=== PATIENT | male | born 1995 | race Caucasian/White ===

== ENCOUNTER 2020-07-10 16:34 | Emergency (ER) | payer BC ==
[2020-07-10] MEDS ORDERED: HYDROCODONE/APAP 7.5/325 MG TAB ONE (16:58)
--- NOTE | 2020-07-10 17:43 | RAD REPORT ---
EXAM DESCRIPTION: RAD - Forearm Right - 07/10/2020 5:17 pm CLINICAL HISTORY: PAIN COMPARISON: No comparisons FINDINGS: No fracture is identified. There is no dislocation or periosteal reaction noted. No foreign body or other soft tissue abnormality. IMPRESSION: Negative right forearm examination.
--- NOTE | 2020-07-10 18:31 | EDPHYS ---
Physician Documentation [facility] Name: Ivan Noe Age: 25 yrs Sex: Male : 1995 Arrival Date: 07/10/2020 Time: 16:34 Bed 13 Private MD: ED Physician Reggie Jarrett HPI: 07/10 17:00 This 25 yrs old Male presents to ER via Ambulatory with complaints of Crush kdr Injury To Arm. 17:00 The patient or guardian complains of an abrasion, contusion, a crush injury, injury, kdr pain. The complaints affect the dorsal aspect of right forearm and palmar aspect of right forearm. Context: The problem was sustained on a street or driveway, resulted from a crush injury, Car rolled over his arm. Onset: The symptoms/episode began/occurred acutely, just prior to arrival. Treatment prior to arrival includes: no previous treatment. Modifying factors: The symptoms are alleviated by nothing. the symptoms are aggravated by movement, bending arm. Associated signs and symptoms: The patient has no apparent associated signs or symptoms. Severity of symptoms: At their worst the symptoms were mild, in the emergency department the symptoms are unchanged. The patient has not experienced similar symptoms in the past. The patient has not recently seen a physician. Historical: - Allergies: 16:49 No Known Allergies; ca1 - Home Meds: 16:49 None [Active]; ca1 - PMHx: 16:49 None; ca1 - PSHx: 16:49 None; ca1 - Immunization history:: Adult Immunizations up to date, Last tetanus immunization: up to date. - Social history:: Smoking status: Patient denies any tobacco usage or history of. - Immunization history: Last tetanus immunization: - up to date. ROS: 17:00 Constitutional: Negative for fever, chills, and weight loss, Eyes: Negative for injury, kdr pain, redness, and discharge, Neck: Negative for injury, pain, and swelling, Cardiovascular: Negative for chest pain, palpitations, and edema, Respiratory: Negative for shortness of breath, cough, wheezing, and pleuritic chest pain, Abdomen/GI: Negative for abdominal pain, nausea, vomiting, diarrhea, and constipation. 17:00 MS/extremity: Positive for injury or acute deformity, decreased range of motion, pain, tenderness, of the dorsal aspect of right forearm and palmar aspect of right forearm. Exam: 17:00 Constitutional: This is a well developed, well nourished patient who is awake, alert, kdr and in no acute distress. Head/Face: Normocephalic, atraumatic. Chest/axilla: Normal chest wall appearance and motion. Nontender with no deformity. No lesions are appreciated. 17:00 Musculoskeletal/extremity: ROM: intact in all extremities, Pulses: are normal with no appreciated deficits, Sensation intact. Compartment Syndrome exam of affected extremity: no numbness, no tingling, no sensation deficit, no palor, no weak pulses, Joints: All joints appear normal with full range of motion. Vital Signs: 16:38 BP 153 / 83; Pulse 91; Resp 17; Temp 98.8(TE); Pulse Ox 99% on R/A; Weight 63.5 kg (R); ca1 Height 6 ft. 2 in. (187.96 cm) (R); Pain 8/10; 16:40 BP 153 / 83; Pulse 81; Resp 15; Pulse Ox 100% on R/A; tw2 17:02 BP 137 / 85; Pulse 77; Resp 15; Pulse Ox 100% ; tw2 17:25 Pain 4/10; tw2 17:26 BP 147 / 86; Pulse 78; Resp 17; Pulse Ox 99% on R/A; Pain 4/10; tw2 18:11 BP 116 / 64; Pulse 76; Resp 17; Pulse Ox 97% on R/A; tw2 16:38 Body Mass Index 17.97 (63.50 kg, 187.96 cm) ca1 Dmitry Coma Score: 17:02 Eye Response: spontaneous(4). Verbal Response: oriented(5). Motor Response: obeys jl7 commands(6). Total: 15. 17:26 Eye Response: spontaneous(4). Verbal Response: oriented(5). Motor Response: obeys tw2 commands(6). Total: 15. Trauma Score (Adult): 16:40 Eye Response: spontaneous(1); Verbal Response: oriented(1); Motor Response: obeys tw2 commands(2); Systolic BP: > 89 mm Hg(4); Respiratory Rate: 10 to 29 per min(4); Dmitry Score: 15; Trauma Score: 12 17:26 Eye Response: spontaneous(1); Verbal Response: oriented(1); Motor Response: obeys tw2 commands(2); Systolic BP: > 89 mm Hg(4); Respiratory Rate: 10 to 29 per min(4); Dmitry Score: 15; Trauma Score: 12 MDM: 17:00 Data reviewed: vital signs, radiologic studies. Counseling: I had a detailed discussion kdr with the patient and/or guardian regarding: the historical points, exam findings, and any diagnostic results supporting the discharge/admit diagnosis, radiology results, the need for outpatient follow up. 18:30 Patient medically screened. kdr 07/10 16:59 Order name: Forearm Right XRAY; Complete Time: 18:34 kdr 07/10 17:05 Order name: Ice pack; Complete Time: 17:05 tw2 Administered Medications: 16:46 Drug: [place] (7.5 mg-325 mg) 1 tabs {Note: rass 0.} Route: PO; ca1 17:25 Follow up: Pain 4/10 Adult; Response: No adverse reaction; Pain is decreased; RASS: tw2 Alert and Calm (0) Disposition: 07/10/20 18:30 Discharged to Home. Impression: Crushing injury of forearm. - Condition is Stable. - Discharge Instructions: Contusion, [id number], Acute Compartment Syndrome, Crush Injury of the Hand, [id number]. - Prescriptions for Tylenol- Codeine #3 300-30 mg Oral Tablet - take 2 tablet by ORAL route every 6 hours As needed; 6 tablet. - Medication Reconciliation Form, Thank You Letter, Prescription Opioid Use, Work release form form. - Follow up: Private Physician; When: 2 - 3 days; Reason: If symptoms return, Further diagnostic work-up, Recheck today's complaints, Continuance of care, Re-evaluation by your physician. - Problem is new. - Symptoms have improved. Signatures: Dispatcher [employer] EDMS Reggie Jarrett MD MD kdr Viviane Vincent RN RN tw2 Grisel Reeves RN RN ca1 Corrections: (The following items were deleted from the chart) 18:44 18:30 07/10/2020 18:30 Discharged to Home. Impression: Crushing injury of forearm. tw2 Condition is Stable. Forms are Work release form, Medication Reconciliation Form, Thank You Letter, Antibiotic Education, Prescription Opioid Use. Follow up: Private Physician; When: 2 - 3 days; Reason: If symptoms return, Further diagnostic work-up, Recheck today's complaints, Continuance of care, Re-evaluation by your physician. Problem is new. Symptoms have improved. kdr
--- NOTE | 2020-07-10 18:31 | ER ---
Nurse's Notes [facility] Name: Ivan Noe Age: 25 yrs Sex: Male : 1995 Arrival Date: 07/10/2020 Time: 16:34 Bed 13 Private MD: Diagnosis: Crushing injury of forearm Presentation: 07/10 16:38 Chief complaint: Patient states: was working on a truck, a dually, it started to roll ca1 and I tried to stop it. The back tire ran over my arm. Abrasions on R forearm and R elbow. Coronavirus screen: Client denies travel out of the [place] in the last 14 days. At this time, the client does not indicate any symptoms associated with coronavirus-19. Ebola Screen: Patient negative for fever greater than or equal to 101.5 degrees Fahrenheit, and additional compatible Ebola Virus Disease symptoms Patient denies exposure to infectious person. Patient denies travel to an Ebola-affected area in the 21 days before illness onset. No symptoms or risks identified at this time. Initial Sepsis Screen: Does the patient meet any 2 criteria? No. Patient's initial sepsis screen is negative. Does the patient have a suspected source of infection? No. Patient's initial sepsis screen is negative. Risk Assessment: Do you want to hurt yourself or someone else? Patient reports no desire to harm self or others. Onset of symptoms was July 10, 2020. 16:38 Method Of Arrival: Ambulatory ca1 16:38 Acuity: GHANSHYAM 2 ca1 16:40 Care prior to arrival: None. Mechanism of Injury: Crush injury from [employer] truck. tw2 Trauma event details: Injury occurred in the [facility]. Trauma Activation: Alert Physician: ED Physician; Name: ; Notified At: ; Arrived At: Physician: General Surgeon; Name: ; Notified At: ; Arrived At: Physician: Radiology; Name: ; Notified At: ; Arrived At: Physician: Respiratory; Name: ; Notified At: ; Arrived At: Physician: Lab; Name: ; Notified At: ; Arrived At: Historical: - Allergies: 16:49 No Known Allergies; ca1 - Home Meds: 16:49 None [Active]; ca1 - PMHx: 16:49 None; ca1 - PSHx: 16:49 None; ca1 - Immunization history:: Adult Immunizations up to date, Last tetanus immunization: up to date. - Social history:: Smoking status: Patient denies any tobacco usage or history of. - Immunization history: Last tetanus immunization: - up to date. Screenin:02 Abuse screen: Denies threats or abuse. Denies injuries from another. Nutritional jl7 screening: No deficits noted. Tuberculosis screening: No symptoms or risk factors identified. 17:11 Fall Risk None identified. tw2 Primary Survey: 16:38 NO uncontrolled hemorrhage observed. A: The patient is alert. Airway: patent. tw2 Breathing/Chest: Respiratory pattern: regular, Respiratory effort: spontaneous, unlabored, Breath sounds: clear, Chest inspection: symmetrical rise and fall of the chest. Circulation: Heart tones present. Skin color: pink, Skin temperature: warm, dry. Disability Alert. Exposure/Environment: All clothing and personal items were removed. Forensic evidence collection is not deemed to be indicated at this time. Items placed in patient belonging bag. There is no evidence of uncontrolled external bleeding. Obvious injury(ies) are noted at this time: abrasions noted to right forearm at this time. 17:26 Reassessment Airway Airway Patent Breathing/Chest Respiratory pattern Regular tw2 Respiratory effort Spontaneous Unlabored Breath sounds Clear Chest inspection Symmetrical Circulation Heart tones Present Color Pale Temperature Dry Disability Alert. Secondary Survey: 17:06 HEENT:. HEENT: No deficits noted. Gastrointestinal: No deficits noted. Abdomen is soft, tw2 Bowel sounds present in all quadrants. : No signs and/or symptoms were reported regarding the genitourinary system. Musculoskeletal: Circulation, motion, and sensation intact. Range of motion: intact in all extremities. Assessment: 16:40 General: Appears in no apparent distress. slender, Behavior is calm, cooperative, tw2 appropriate for age. Pain: Complains of pain in right arm and palmar aspect of right forearm and dorsal aspect of right forearm. Neuro: Level of Consciousness is awake, alert, obeys commands, Oriented to person, place, time, situation. Cardiovascular: Heart tones S1 S2 Patient's skin is warm and dry. Respiratory: Airway is patent Respiratory effort is even, unlabored, Respiratory pattern is regular, symmetrical, Breath sounds are clear bilaterally. GI: No signs and/or symptoms were reported involving the gastrointestinal system. Abdomen is flat, Bowel sounds present X 4 quads. : No signs and/or symptoms were reported regarding the genitourinary system. EENT: No signs and/or symptoms were reported regarding the EENT system. Derm: abrasions noted to right forearm. Musculoskeletal: Circulation, motion, and sensation intact. Range of motion: intact in all extremities, redness and abrasions noted to right forearm. 16:42 Reassessment: provider at bedside at this time. tw2 17:29 Reassessment: Patient appears in no apparent distress at this time. No changes from tw2 previously documented assessment. Patient and/or family updated on plan of care and expected duration. Pain level reassessed. Patient is alert, oriented x 3, equal unlabored respirations, skin warm/dry/pink. 18:11 Reassessment: Patient appears in no apparent distress at this time. No changes from tw2 previously documented assessment. Patient and/or family updated on plan of care and expected duration. Pain level reassessed. Patient is alert, oriented x 3, equal unlabored respirations, skin warm/dry/pink. Vital Signs: 16:38 BP 153 / 83; Pulse 91; Resp 17; Temp 98.8(TE); Pulse Ox 99% on R/A; Weight 63.5 kg (R); ca1 Height 6 ft. 2 in. (187.96 cm) (R); Pain 8/10; 16:40 BP 153 / 83; Pulse 81; Resp 15; Pulse Ox 100% on R/A; tw2 17:02 BP 137 / 85; Pulse 77; Resp 15; Pulse Ox 100% ; tw2 17:25 Pain 4/10; tw2 17:26 BP 147 / 86; Pulse 78; Resp 17; Pulse Ox 99% on R/A; Pain 4/10; tw2 18:11 BP 116 / 64; Pulse 76; Resp 17; Pulse Ox 97% on R/A; tw2 16:38 Body Mass Index 17.97 (63.50 kg, 187.96 cm) ca1 [place] Coma Score: 17:02 Eye Response: spontaneous(4). Verbal Response: oriented(5). Motor Response: obeys jl7 commands(6). Total: 15. 17:26 Eye Response: spontaneous(4). Verbal Response: oriented(5). Motor Response: obeys tw2 commands(6). Total: 15. Trauma Score (Adult): 16:40 Eye Response: spontaneous(1); Verbal Response: oriented(1); Motor Response: obeys tw2 commands(2); Systolic BP: > 89 mm Hg(4); Respiratory Rate: 10 to 29 per min(4); [place] Score: 15; Trauma Score: 12 17:26 Eye Response: spontaneous(1); Verbal Response: oriented(1); Motor Response: obeys tw2 commands(2); Systolic BP: > 89 mm Hg(4); Respiratory Rate: 10 to 29 per min(4); Dmitry Score: 15; Trauma Score: 12 ED Course: 16:34 Patient arrived in ED. as 16:39 Reggie Jarrett MD is Attending Physician. kdr 16:40 Patient maintains SpO2 saturation greater than 95% on room air. tw2 16:42 Viviane Vincent RN is Primary Nurse. tw2 16:48 Triage completed. ca1 16:49 Arm band placed on right wrist. ca1 17:02 Patient has correct armband on for positive identification. Placed in gown. Bed in low jl7 position. Call light in reach. Side rails up X 1. Pulse ox on. NIBP on. 17:10 Thermoregulation: warm blanket given to patient. tw2 17:17 Forearm Right XRAY In Process Unspecified. EDMS 18:43 No provider procedures requiring assistance completed. Patient did not have IV access tw2 during this emergency room visit. Administered Medications: 16:46 Drug: [place] (7.5 mg-325 mg) 1 tabs {Note: rass 0.} Route: PO; ca1 17:25 Follow up: Pain 4/10 Adult; Response: No adverse reaction; Pain is decreased; RASS: tw2 Alert and Calm (0) Intake: 18:07 PO: 0ml; Total: 0ml. tw2 Outcome: 18:30 Discharge ordered by . kdr 18:43 Discharged to home ambulatory. tw2 18:43 Condition: stable 18:43 Discharge instructions given to patient, Instructed on discharge instructions, follow up and referral plans. no drinking with medication, no driving heavy equipment, medication usage, Demonstrated understanding of instructions, follow-up care, medications, Prescriptions given X 1. 18:44 Patient's length of stay was not longer than 2 hours. tw2 18:44 Patient left the ED. tw2 Signatures: Dispatcher [employer] EDMS Reggie Jarrett MD MD kdr Martinez, Amelia as Wise, Tara, RN RN tw2 Jeet Lawson RN RN jl7 Grisel Reeves RN RN ca1 Corrections: (The following items were deleted from the chart) 17:09 17:02 BP 137 / 54; Pulse 77bpm; Resp 15bpm; Pulse Ox 100%; jl7 tw2 18:11 17:26 BP 147 / 86; Pulse 78bpm; Resp 17bpm; Pulse Ox 99% RA; tw2 tw2
[2020-07-11 01:06] VITALS: TEMP 98.8
[2020-07-11 01:16] VITALS: BP 116/64; O2SAT 97
== END 2020-07-10 18:44 | disposition home or self-care (01) ==
LOC: ER 16:34
DX: S57.81XA Crushing injury of right forearm, initial encounter (principal); Y93.9 Activity, unspecified; Y92.488 Other paved roadways as the place of occurrence of the external cause
CPT/HCPCS: 99284; G0390

== ENCOUNTER 2022-11-09 15:09 | Emergency (ER) | payer OTHER ==
[2022-11-09] MEDS ORDERED: KETOROLAC 30 MG/ML INJ ONE (15:46)
--- NOTE | 2022-11-09 15:57 | RAD REPORT ---
EXAM DESCRIPTION: CT - Spine Lumbar Wo Con - 11/09/2022 3:49 pm CLINICAL HISTORY: Lower back pain;Smash injury COMPARISON: No comparisons TECHNIQUE: Axial noncontrast CT imaging of the lumbar spine was performed with coronal and sagittal re-formatted images. All CT scans are performed using dose optimization technique as appropriate and may include automated exposure control or mA/KV adjustment according to patient size. FINDINGS: No acute lumbar spine fracture seen. No aggressive marrow pattern or malalignment. Paraspinal tissues are normal in thickness. No paraspinal abscess or hematoma seen. Nonobstructive ri ght nephrolithiasis. Intervertebral disc disease assessment is inherently limited by CT. Within these limitations, no high -grade canal stenosis suspected. IMPRESSION: No acute fracture malalignment of the lumbar spine. Consider MRI follow-up for assessment of disc disease if clinically desired.
[2022-11-09 17:27] VITALS: TEMP 98.2
[2022-11-09 17:28] VITALS: BP 138/89; O2SAT 98
--- NOTE | 2022-11-22 16:10 | ER ---
Nurse's Notes [facility] Name: Ivan Noe Age: 27 yrs Sex: Male : 1995 Arrival Date: 11/09/2022 Time: 15:12 Bed IW3 Private MD: Diagnosis: Low back pain;Sciatica, right side Presentation: 11/09 15:21 Chief complaint: Patient states: "I fell back in April and I have a lot of pain in my mb9 lower back and pelvis area. Its progressively getting worse. I have sharp and tingling pains and its getting harder to do my every day activities". Coronavirus screen: Vaccine status: Patient reports being unvaccinated. Ebola Screen: No symptoms or risks identified at this time. Initial Sepsis Screen: Does the patient meet any 2 criteria? No. Patient's initial sepsis screen is negative. Does the patient have a suspected source of infection? No. Patient's initial sepsis screen is negative. Risk Assessment: Do you want to hurt yourself or someone else? Patient reports no desire to harm self or others. Onset of symptoms was November 09, 2022. 15:21 Method Of Arrival: Ambulatory [facility] 15:21 Acuity: GHANSHYAM 4 mb9 Triage Assessment: 15:27 General: Appears uncomfortable, Behavior is calm, cooperative, appropriate for age. mb9 Pain: Complains of pain in pelvis and low back area Pain radiates to right leg and left leg Pain currently is 9 out of 10 on a pain scale. Is continuous. Neuro: Level of Consciousness is awake, alert, obeys commands, Oriented to person, place, time, situation, Appropriate for age. Cardiovascular: Patient's skin is warm and dry. Respiratory: Airway is patent Respiratory effort is even, unlabored, Respiratory pattern is regular, symmetrical. Derm: Skin is pink, warm \\T\\ dry. Musculoskeletal: Range of motion: intact in all extremities. Historical: - Allergies: 15:25 No Known Allergies; mb9 - Home Meds: 15:25 Acetaminophen Oral [Active]; mb9 - PMHx: 15:25 None; mb9 - PSHx: 15:25 None; mb9 - Immunization history:: Adult Immunizations up to date. - Social history:: Smoking status: Patient denies any tobacco usage or history of. Screenin:26 [facility] ED Fall Risk Assessment (Adult) History of falling in the last 3 months, mb9 including since admission No falls in past 3 months (0 pts) Confusion or Disorientation No (0 pts) Intoxicated or Sedated No (0 pts) Impaired Gait No (0 pts) Mobility Assist Device Used No (0 pt) Altered Elimination No (0 pt) Score/Fall Risk Level 0 - 2 = Low Risk Oriented to surroundings, Maintained a safe environment, Educated pt \\T\\ family on fall prevention, incl call for assistance when getting out of bed. Abuse screen: Denies threats or abuse. Nutritional screening: No deficits noted. Tuberculosis screening: No symptoms or risk factors identified. Assessment: 15:28 Reassessment: see triage assessment. mb9 16:44 Reassessment: No changes from previously documented assessment. Patient and/or family mb9 updated on plan of care and expected duration. Pain level reassessed. Patient is alert, oriented x 3, equal unlabored respirations, skin warm/dry/pink. Vital Signs: 15:21 BP 144 / 93; Pulse 83; Resp 20; Temp 98.2(O); Pulse Ox 100% ; Weight 63.5 kg; Height 6 mb9 ft. 2 in. ; Pain 9/10; 16:43 BP 138 / 89; Pulse 78; Resp 18; Pulse Ox 98% ; mb9 15:21 Body Mass Index 17.97 (63.50 kg, 187.96 cm) mb9 15:21 Pain Scale: Adult mb9 ED Course: 15:12 Patient arrived in ED. mr 15:13 Sherry Bermudez FNP-C is [facility]. snw 15:13 Del Sampson MD is Attending Physician. snw 15:21 Arm band placed on. mb9 15:25 Triage completed. mb9 15:50 CT Lumbar Spine Wo Con In Process Unspecified. EDMS 16:44 No provider procedures requiring assistance completed. Patient did not have IV access mb9 during this emergency room visit. Administered Medications: 15:43 Drug: Ketorolac IM 30 mg Route: IM; Site: right deltoid; mb9 16:39 Follow up: Response: No adverse reaction mb9 Medication: 15:27 VIS not applicable for this client. mb9 Outcome: 16:18 Discharge ordered by . snw 16:44 Discharged to home ambulatory. mb9 16:44 Condition: stable 16:44 Discharge instructions given to patient, Instructed on discharge instructions, follow up and referral plans. Demonstrated understanding of instructions, follow-up care, medications, Prescriptions given X 3. 16:45 Patient left the ED. mb9 Signatures: Dispatcher [employer] EDSherry Wood, SURGICAL APPLIANCES SALESPERSON-C SURGICAL APPLIANCES SALESPERSON-Jose Luisw Jania Sanches Vero, Jania Polk, RN RN mb9
--- NOTE | 2022-11-22 16:10 | EDPHYS ---
Physician Documentation [facility] Name: Ivan Noe Age: 27 yrs Sex: Male : 1995 Arrival Date: 11/09/2022 Time: 15:12 Bed IW3 Private MD: ED Physician Del Sampson HPI: 11/09 15:27 This 27 yrs old Male presents to ER via Ambulatory with complaints of Back Pain, Leg snw Pain, Pelvic Pain. 15:27 The patient presents with pain that is acute, and an injury, and spasm, and tenderness. snw The symptoms are located in the low back. Onset: The symptoms/episode began/occurred acutely. The pain radiates to the right upper thigh and right quadriceps. The problem was sustained during a fall, from a height - from a branch in April, chiropractic treatment since. Severity of symptoms: At their worst the symptoms were moderate, severe, earlier today. The patient has experienced similar episodes in the past, multiple times. The patient has not recently seen a physician. Historical: - Allergies: 15:25 No Known Allergies; mb9 - Home Meds: 15:25 Acetaminophen Oral [Active]; mb9 - PMHx: 15:25 None; mb9 - PSHx: 15:25 None; mb9 - Immunization history:: Adult Immunizations up to date. - Social history:: Smoking status: Patient denies any tobacco usage or history of. ROS: 15:25 Constitutional: Negative for fever, chills, and weight loss, Eyes: Negative for injury, snw pain, redness, and discharge, ENT: Negative for injury, pain, and discharge, Neck: Negative for injury, pain, and swelling, Cardiovascular: Negative for chest pain, palpitations, and edema, Respiratory: Negative for shortness of breath, cough, wheezing, and pleuritic chest pain, Abdomen/GI: Negative for abdominal pain, nausea, vomiting, diarrhea, and constipation, : Negative for injury, bleeding, discharge, and swelling, Skin: Negative for injury, rash, and discoloration, Psych: Negative for depression, anxiety, suicide ideation, homicidal ideation, and hallucinations. 15:25 Back: Positive for injury or acute deformity, pain with movement, radiated pain, of the low back area. 15:25 MS/extremity: Positive for injury or acute deformity, contusion, pain, tenderness, of the right upper thigh and right quadriceps. Exam: 15:24 Constitutional: This is a well developed, well nourished patient who is awake, alert, snw and in no acute distress. Head/Face: Normocephalic, atraumatic. Eyes: Pupils equal round and reactive to light, extra-ocular motions intact. Lids and lashes normal. Conjunctiva and sclera are non-icteric and not injected. Cornea within normal limits. Periorbital areas with no swelling, redness, or edema. ENT: Nares patent. No nasal discharge, no septal abnormalities noted. Tympanic membranes are normal and external auditory canals are clear. Oropharynx with no redness, swelling, or masses, exudates, or evidence of obstruction, uvula midline. Mucous membranes moist. Neck: Trachea midline, no thyromegaly or masses palpated, and no cervical lymphadenopathy. Supple, full range of motion without nuchal rigidity, or vertebral point tenderness. No Meningismus. Chest/axilla: Normal chest wall appearance and motion. Nontender with no deformity. No lesions are appreciated. Cardiovascular: Regular rate and rhythm with a normal S1 and S2. No gallops, murmurs, or rubs. Normal PMI, no JVD. No pulse deficits. Respiratory: Lungs have equal breath sounds bilaterally, clear to auscultation and percussion. No rales, rhonchi or wheezes noted. No increased work of breathing, no retractions or nasal flaring. Abdomen/GI: Soft, non-tender, with normal bowel sounds. No distension or tympany. No guarding or rebound. No evidence of tenderness throughout. Skin: Warm, dry with normal turgor. Normal color with no rashes, no lesions, and no evidence of cellulitis. Psych: Awake, alert, with orientation to person, place and time. Behavior, mood, and affect are within normal limits. 15:24 Back: pain, that is moderate, of the low back area, muscle spasm, is appreciated in the low back area. 15:24 Musculoskeletal/extremity: Pulses: are normal with no appreciated deficits, the right upper thigh and right quadriceps Severe pain noted. 15:24 Neuro: Orientation: is normal, Mentation: is normal, Memory: is normal, Motor: painful rom to right lower back/leg. Vital Signs: 15:21 BP 144 / 93; Pulse 83; Resp 20; Temp 98.2(O); Pulse Ox 100% ; Weight 63.5 kg; Height 6 mb9 ft. 2 in. ; Pain 9/10; 16:43 BP 138 / 89; Pulse 78; Resp 18; Pulse Ox 98% ; mb9 15:21 Body Mass Index 17.97 (63.50 kg, 187.96 cm) mb9 15:21 Pain Scale: Adult mb9 MDM: 15:14 Patient medically screened. snw 16:04 Differential diagnosis: arthritis, chronic back pain, Fracture sprain, sciatica. Data snw reviewed: vital signs, nurses notes. I considered the following discharge prescriptions or medication management in the emergency department Medications were administered in the Emergency Department. See MAR. Counseling: I had a detailed discussion with the patient and/or guardian regarding: the historical points, exam findings, and any diagnostic results supporting the discharge/admit diagnosis, the presence of at least one elevated blood pressure reading (>120/80) during this emergency department visit, radiology results, to return to the emergency department if symptoms worsen or persist or if there are any questions or concerns that arise at home. Special discussion: I have referred the patient to see his PCP for further evaluation of high blood pressure. Based on the history and exam findings, there is no indication for further emergent testing or inpatient evaluation. I discussed with the patient/guardian the need to see the back specialist for further evaluation of the symptoms. I discussed with the patient/guardian the need to see the primary care provider for further evaluation of the symptoms. 11/09 15:23 Order name: CT Lumbar Spine Wo Con; Complete Time: 16:00 snw Administered Medications: 15:43 Drug: Ketorolac IM 30 mg Route: IM; Site: right deltoid; mb9 16:39 Follow up: Response: No adverse reaction mb9 Disposition: 18:30 Co-signature as Attending Physician, Del Sampson MD I reviewed the patient's care rt provided by the Advanced Practice Provider and agree with the diagnosis and treatment plan. Disposition Summary: 11/09/22 16:18 Discharge Ordered Location: Home snw Condition: Stable snw Diagnosis - Low back pain snw - Sciatica, right side snw Followup: snw - With: Emergency Department - When: As needed - Reason: Worsening of condition Followup: snw - With: Private Physician - When: 2 - 3 days - Reason: Recheck today's complaints, Continuance of care, Re-evaluation by your physician Discharge Instructions: - Discharge Summary Sheet snw - Kidney Stones snw - Sciatica snw - Rehydration, Adult snw - Lumbar Sprain snw - Lumbar Strain snw Forms: - Work release form snw - Medication Reconciliation Form snw - Thank You Letter snw - Antibiotic Education snw - Prescription Opioid Use snw Prescriptions: - Prednisone 20 mg Oral Tablet - take 2 tablets by ORAL route once daily for 5 days; 10 tablet; Refills: 0, snw Product Selection Permitted - orphenadrine citrate 100 mg Oral Tablet Sustained Release - take 1 tablet by ORAL route 2 times per day As needed; 20 tablet; Refills: 0, snw Product Selection Permitted - Pepcid 20 mg Oral Tablet - take 1 tablet by ORAL route once daily; 20 tablet; Refills: 0, Product snw Selection Permitted Signatures: Dispatcher [employer] EDSherry Wood, [employer]PA[employer]-C [employer]PA[employer]-Csnw Jania Pham RN RN mb9 Del Sampson MD MD rt
== END 2022-11-09 16:45 | disposition home or self-care (01) ==
LOC: ER 15:09
DX: M54.50 Low back pain, unspecified (principal); M54.31 Sciatica, right side
CPT/HCPCS: 72131; 96372; 99283

== ENCOUNTER 2022-11-19 08:36 | Emergency (ER) | payer OTHER ==
[2022-11-19 09:12] LABS: Absolute Lymphocytes (CBC) 4.5 K/uL (0.7-4.9); Hematocrit 47.7 % (39.6-49.0); Lymphocytes % 42.1 % (15.3-44.8); MCV 90.5 fL (80-100); MPV 8.1 fL (7.6-11.3); RBC Red Blood Cell Count 5.27 M/uL (4.33-5.43)
[2022-11-19 09:16] LABS: Protime INR 0.89
[2022-11-19] MEDS ORDERED: DIAZEPAM 2 MG TABLET ONE (09:24)
[2022-11-19] MEDS ORDERED: ONDANSETRON 4 MG/2 ML VIAL ONE (09:24)
[2022-11-19] MEDS ORDERED: NA CHLORIDE 0.9% 1,000 ML ONE (09:24)
[2022-11-19 09:33] LABS: Albumin 4.7 g/dL (3.4-5.0); Bilirubin Direct 0.2 mg/dL (0-0.2); Bilirubin Total 0.5 mg/dL (0.2-1.0); Magnesium 2.2 mg/dL (1.6-2.4); Potassium 3.7 mEq/L (3.5-5.1); Thyroid Stimulating Hormone 1.3 uIU/mL (0.358-3.740); Troponin High Sensitivity 6.5 pg/mL (<58.9)
--- NOTE | 2022-11-19 09:33 | RAD REPORT ---
EXAM DESCRIPTION: CT - Head Brain Wo Cont - 11/19/2022 9:14 am CLINICAL HISTORY: DIZZINESS COMPARISON: No comparisonsNo comparisons TECHNIQUE: Noncontrast head CT images ad were obtained without IV contrast. Multiplanar reformats we re generated and reviewed. All CT scans are performed using dose optimization technique as appropriate and may include automated exposure control or mA/KV adjustment according to patient size. FINDINGS: No intracranial hemorrhage, mass, or edema. Midline structures are unremarkable. Normal ventricular caliber for age. Johns-white matter differentiation is preserved, without evidence of acute infarct. No abnormal extra- axial fluid collections. Mastoid air cells and visualized portions of the paranasal sinuses are clear. No acute bony findings. IMPRESSION: No evidence of an acute intracranial process.
[2022-11-19] MEDS ORDERED: PROMETHAZINE INJ 25 MG/ML AMP ONE (10:01)
[2022-11-19] MEDS ORDERED: MECLIZINE HCL 12.5 MG TAB ONE (10:01)
--- NOTE | 2022-11-19 11:10 | RAD REPORT ---
EXAM DESCRIPTION: CT - Head angio - 11/19/2022 10:07 am CLINICAL HISTORY: DIZZINESS COMPARISON: Head Brain Wo Cont dated 11/19/2022; Neck Angio dated 11/19/2022 TECHNIQUE: Axial CT angiography images of the head was performed with multiplanar and maximum intens ity projection reconstructions. Images performed following intravenous administration of 90mL Isovue 370. All CT scans are performed using dose optimization technique as appropriate and may include automated exposure control or mA/KV adjustment according to patient size. FINDINGS: No evidence of large vessel occlusion. No evidence of aneurysm or dissection flap is detec boni. No flow-limiting stenosis or vascular malformation identified. Antegrade flow is seen in the vertebral arteries. The vertebral arteries are codominant. The visualized dural venous sinuses are grossly patent. IMPRESSION: No evidence of large vessel occlusion or flow-limiting stenosis.
--- NOTE | 2022-11-19 11:18 | RAD REPORT ---
EXAM DESCRIPTION: CT - Neck Angio - 11/19/2022 10:07 am CLINICAL HISTORY: dizziness, numbness COMPARISON: No comparisons TECHNIQUE: Axial CT angiography images of the head was performed with multiplanar and maximum intens ity projection reconstructions. Images performed following intravenous administration of 95mL Isovue 370. All CT scans are performed using dose optimization technique as appropriate and may include automated exposure control or mA/KV adjustment according to patient size. FINDINGS: A left aortic arch is identified with normal three vessel configuration of the great vesse ls. No significant flow abnormality is seen of the common carotid bilaterally. No significant stenosis is identified involving the cervical segments of both internal carotid arteri es. Normal flow is seen within both vertebral arteries. IMPRESSION: No significant flow abnormality of the neck vessels is identified.
--- NOTE | 2022-11-19 11:23 | RAD REPORT ---
EXAM DESCRIPTION: Mari Single View11/19/2022 9:30 am CLINICAL HISTORY: tachypnea COMPARISON: No comparisons TECHNIQUE: Portable AP view of the chest. FINDINGS: The lungs are clear. No pneumothorax or effusion. The cardiomediastinal contours are unrem arkable. IMPRESSION: No acute cardiopulmonary process.
--- NOTE | 2022-11-19 11:47 | EDPHYS ---
Physician Documentation [facility] Name: Ivan Noe Age: 27 yrs Sex: Male : 1995 Arrival Date: 11/19/2022 Time: 08:42 Bed 14 Private MD: ED Physician Mitesh Grady HPI: 11/19 09:25 This 27 yrs old Male presents to ER via Wheelchair with complaints of Near Syncope. rn 09:25 The patient has experienced near-syncope. Onset: The symptoms/episode began/occurred rn this morning. Duration: This was a single episode, that is still ongoing. Associated injury: The patient did not suffer any apparent associated injury. Associated signs and symptoms: Pertinent positives: dizziness, lightheadedness, numbness, Pertinent negatives: abdominal pain, chest pain, headache, seizure, shortness of breath. Current symptoms:. The patient has not experienced similar symptoms in the past. The patient has not recently seen a physician. Pt reports woke up "not feeling well", feeling lightheaded/nausea/dizzy, almost passed out. 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 Pt reports hx of anxiety. No drug use. . Historical: - Allergies: 09:03 No Known Allergies; vg1 - Home Meds: 09:03 None [Active]; vg1 - PMHx: 09:03 None; vg1 - Immunization history:: Client reports having NOT received the Covid vaccine. - Social history:: Smoking status: Patient denies any tobacco usage or history of. - Family history:: not pertinent. - Hospitalizations: : No recent hospitalization is reported. ROS: 09:25 Constitutional: Negative for fever, chills, and weight loss, Eyes: Negative for injury, rn pain, redness, and discharge, Neck: Negative for injury, pain, and swelling, Cardiovascular: Negative for chest pain, palpitations, and edema, Respiratory: Negative for shortness of breath, cough, wheezing, and pleuritic chest pain, Abdomen/GI: Negative for abdominal pain, diarrhea, and constipation, Back: Negative for injury and pain, MS/Extremity: Negative for injury and deformity, Skin: Negative for injury, rash, and discoloration, Neuro: Negative for headache, weakness, + tingling to face/hands/feet Exam: 09:25 Constitutional: This is a well developed, well nourished patient who is awake, alert, rn tachypneic and shivering Head/Face: Normocephalic, atraumatic. Eyes: Pupils equal round and reactive to light, extra-ocular motions intact. Neck: Trachea midline, no thyromegaly or masses palpated, and no cervical lymphadenopathy. Supple, full range of motion without nuchal rigidity, or vertebral point tenderness. No Meningismus. Cardiovascular: Tachycardic, regular Respiratory: + tachypnea, no wheezing or retractions, able to slow down breathing on his own with coaching Abdomen/GI: Soft, non-tender Skin: Warm, dry MS/ Extremity: Pulses equal, no cyanosis. Neuro: Awake and alert, GCS 15, oriented to person, place, time, and situation. Cranial nerves II-XII grossly intact. Motor strength 5/5 in all extremities. Sensory grossly intact. 10:52 ECG was reviewed by the Attending Physician. rn Vital Signs: 08:43 BP 148 / 99; Pulse 100; Resp 22; Temp 97.7; Pulse Ox 98% on R/A; Weight 63.5 kg; Height zm 6 ft. 0 in. ; 09:45 BP 128 / 86; Pulse 89; Resp 18; Pulse Ox 100% on R/A; kr3 11:45 BP 130 / 88; Pulse 86; Resp 17; Pulse Ox 100% ; kr3 12:27 BP 130 / 95; Pulse 83; Resp 18; Pulse Ox 100% on R/A; kr3 08:43 Body Mass Index 18.99 (63.50 kg, 182.88 cm) MDM: 08:46 Patient medically screened. rn 11:42 Differential Diagnosis: cardiac arrhythmia, cerebrovascular accident, emotional rn response, idiopathic syncope, transient ischemic attack, vasovagal episode, vertigo, viral illness, vascular compromise, anxiety. Data reviewed: vital signs, nurses notes, lab test result(s), EKG, radiologic studies, CT scan, and as a result, I will discharge patient. 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 I considered the following discharge prescriptions or medication management in the emergency department Medications were administered in the Emergency Department. See MAR. Counseling: I had a detailed discussion with the patient and/or guardian regarding: the historical points, exam findings, and any diagnostic results supporting the discharge/admit diagnosis, lab results, radiology results, the need for outpatient follow up, to return to the emergency department if symptoms worsen or persist or if there are any questions or concerns that arise at home. Response to treatment: the patient's symptoms have mildly improved after treatment, and as a result, I will discharge patient. Special discussion: I discussed with the patient/guardian in detail that at this point there is no indication for admission to the hospital. It is understood, however, that if the symptoms persist or worsen the patient needs to return immediately for re-evaluation. Based on the history and exam findings, there is no indication for further emergent testing or inpatient evaluation. I discussed with the patient/guardian the need to see the neurologist for further evaluation of the symptoms. ED course: Pt improved, vitals have normalized, ct head and angios without acute findings. Trop neg. Anxiety as secondary problem has improved with valium. Will dc home with meclizine and prn zofran along with return precautions and neuro f/u. 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 . 11/19 08:47 Order name: Basic Metabolic Panel; Complete Time: :11/19 08:47 Order name: CBC with Diff; Complete Time: :11/19 08:47 Order name: Hepatic Function; Complete Time: :11/19 08:47 Order name: Magnesium; Complete Time: :11/19 08:47 Order name: Protime (+inr); Complete Time: :11/19 08:47 Order name: Ptt, Activated; Complete Time: :11/19 08:47 Order name: Troponin High Sensitivity; Complete Time: 09:36 11/19 08:47 Order name: UDS rn 11/19 08:47 Order name: TSH; Complete Time: :11/19 08:47 Order name: T4 Free; Complete Time: :11/19 08:47 Order name: CT Head Brain wo Cont; Complete Time: 09:36 11/19 08:47 Order name: Chest Single View XRAY; Complete Time: 11:33 11/19 09:37 Order name: Head Angio CT; Complete Time: :11/19 09:37 Order name: Neck Angio CT; Complete Time: 11:33 rn 11/19 08:47 Order name: EKG; Complete Time: 08:48 rn 11/19 08:47 Order name: Cardiac monitoring; Complete Time: 08:49 rn 11/19 08:47 Order name: EKG - Nurse/Tech; Complete Time: 10:45 rn 11/19 08:47 Order name: IV Saline Lock; Complete Time: 08:49 rn 11/19 08:47 Order name: Labs collected and sent; Complete Time: 08:49 rn 11/19 08:47 Order name: O2 Per Protocol; Complete Time: 08:49 rn 11/19 08:47 Order name: O2 Sat Monitoring; Complete Time: 08:49 rn EC:52 Rate is 85 beats/min. Rhythm is regular. QRS [place] is Normal. [place] interval is normal. QRS rn interval is normal. QT interval is normal. No Q waves. T waves are Normal. No ST changes noted. Clinical impression: Normal ECG. Interpreted by me. Reviewed by me. Administered Medications: 09:47 Drug: Ondansetron IVP 4 mg Route: IVP; Site: right antecubital; kr3 12:26 Follow up: Response: No adverse reaction kr3 09:48 Drug: NS 0.9% IV 1000 ml Route: IV; Rate: 1000 ml; Site: right antecubital; kr3 12:26 Follow up: Response: No adverse reaction; IV Status: Completed infusion; IV Intake: kr3 1000ml 10:30 Drug: Meclizine PO 50 mg Route: PO; kr3 12:26 Follow up: Response: No adverse reaction kr3 10:31 Drug: Diazepam PO 2 mg Route: PO; kr3 12:26 Follow up: Response: No adverse reaction kr3 12:26 Not Given (Patient Refused): Promethazine IVP 12.5 mg IVP once kr3 Disposition Summary: 11/19/22 11:46 Discharge Ordered Location: Home rn Problem: new rn Symptoms: have improved rn Condition: Stable rn Diagnosis - Near Syncope rn - Other peripheral vertigo rn - Anxiety disorder, unspecified rn Followup: rn - With: Masoud Man MD - When: As needed - Reason: Recheck today's complaints, Re-evaluation by your physician Discharge Instructions: - Discharge Summary Sheet rn - Near-Syncope rn - Vertigo rn - Managing Anxiety, Adult rn Forms: - Medication Reconciliation Form rn - Thank You Letter rn - Antibiotic concrete journeyman - Prescription Opioid Use rn Prescriptions: - ondansetron 4 mg Oral Tablet,disintegrating - take 1 tablet by ORAL route every 8 hours As needed; 15 tablet; Refills: 0, rn Product Selection Permitted - Meclizine 25 mg Oral Tablet - take 1 tablet by ORAL route every 8 hours As needed; 30 tablet; Refills: 0, rn Product Selection Permitted Signatures: Dispatcher [employer] EDMitesh Hill MD MD rn Garcia, Victoria RN RN vg1 Jazz Reed RN RN kr3
--- NOTE | 2022-11-19 11:47 | ER ---
Nurse's Notes [facility] Name: Ivan Noe Age: 27 yrs Sex: Male : 1995 Arrival Date: 11/19/2022 Time: 08:42 Bed 14 Private MD: Diagnosis: Near Syncope;Other peripheral vertigo;Anxiety disorder, unspecified Presentation: 11/19 08:45 Chief complaint: Patient states: Rapid response called in front lobby for pt, pt stated vg1 lightheaded, dizzy and shaky; c/o headache and nausea. 08:45 Coronavirus screen: Vaccine status: Patient reports being unvaccinated. Client denies vg1 travel out of the [place] in the last 14 days. Ebola Screen: Patient negative for fever greater than or equal to 101.5 degrees Fahrenheit, and additional compatible Ebola Virus Disease symptoms Patient denies exposure to infectious person. Patient denies travel to an Ebola-affected area in the 21 days before illness onset. Initial Sepsis Screen: Does the patient meet any 2 criteria? RR > 20 per min. Does the patient have a suspected source of infection? No. Patient's initial sepsis screen is negative. Risk Assessment: Do you want to hurt yourself or someone else? Patient reports no desire to harm self or others. Onset of symptoms was November 19, 2022. 08:45 Method Of Arrival: Wheelchair vg1 08:45 Acuity: GHANSHYAM 3 vg1 Triage Assessment: 08:45 General: Appears in no apparent distress. uncomfortable, Behavior is anxious. Pain: vg1 Complains of pain in head Pain currently is 7 out of 10 on a pain scale. Pain began 3 hours ago. EENT: No signs and/or symptoms were reported regarding the EENT system. Neuro: Level of Consciousness is awake, alert, obeys commands, Oriented to person, place, time, situation. Cardiovascular: Patient's skin is warm and dry. Respiratory: Airway is patent Respiratory effort is even, unlabored. GI: Abdomen is flat, non-distended, Reports nausea, vomiting. : No signs and/or symptoms were reported regarding the genitourinary system. Derm: Skin is pink, warm \T\ dry. Musculoskeletal: Circulation, motion, and sensation intact. Historical: - Allergies: 09:03 No Known Allergies; vg1 - Home Meds: :03 None [Active]; vg1 - PMHx: 09:03 None; vg1 - Immunization history:: Client reports having NOT received the Covid vaccine. - Social history:: Smoking status: Patient denies any tobacco usage or history of. - Family history:: not pertinent. - Hospitalizations: : No recent hospitalization is reported. Screenin:08 [facility] ED Fall Risk Assessment (Adult) History of falling in the last 3 months, vg1 including since admission No falls in past 3 months (0 pts) Confusion or Disorientation No (0 pts) Intoxicated or Sedated No (0 pts) Impaired Gait No (0 pts) Mobility Assist Device Used No (0 pt) Altered Elimination No (0 pt) Score/Fall Risk Level 0 - 2 = Low Risk Oriented to surroundings, Maintained a safe environment, Educated pt \T\ family on fall prevention, incl call for assistance when getting out of bed, Assessed \T\ reinforced patient's understanding of fall precautions. Abuse screen: Denies threats or abuse. Denies injuries from another. Nutritional screening: No deficits noted. Tuberculosis screening: No symptoms or risk factors identified. Assessment: 09:45 Reassessment: Patient appears in no apparent distress at this time. Patient is alert, kr3 oriented x 3, equal unlabored respirations, skin warm/dry/pink. 10:45 Reassessment: Patient appears in no apparent distress at this time. Patient is alert, kr3 oriented x 3, equal unlabored respirations, skin warm/dry/pink. 11:45 Reassessment: Patient appears in no apparent distress at this time. Patient is alert, kr3 oriented x 3, equal unlabored respirations, skin warm/dry/pink. Vital Signs: 08:43 BP 148 / 99; Pulse 100; Resp 22; Temp 97.7; Pulse Ox 98% on R/A; Weight 63.5 kg; Height zm 6 ft. 0 in. ; 09:45 BP 128 / 86; Pulse 89; Resp 18; Pulse Ox 100% on R/A; kr3 11:45 BP 130 / 88; Pulse 86; Resp 17; Pulse Ox 100% ; kr3 12:27 BP 130 / 95; Pulse 83; Resp 18; Pulse Ox 100% on R/A; kr3 08:43 Body Mass Index 18.99 (63.50 kg, 182.88 cm) ED Course: 08:42 Patient arrived in ED. zm 08:43 Inserted saline lock: 20 gauge in right antecubital area, using aseptic technique. zm Blood collected. 08:45 Arm band placed on. vg1 08:46 Mitesh Grady MD is Attending Physician. rn 08:47 Dania Bryan, JULISSA is Primary Nurse. vg1 09:03 Triage completed. vg1 09:03 TSH Sent. zm 09:03 T4 Free Sent. zm 09:03 Basic Metabolic Panel Sent. zm 09:03 CBC with Diff Sent. zm 09:03 Hepatic Function Sent. zm 09:03 Magnesium Sent. zm 09:03 Protime (+inr) Sent. zm 09:03 Ptt, Activated Sent. zm 09:03 Troponin High Sensitivity Sent. zm 09:08 Patient has correct armband on for positive identification. Bed in low position. Call vg1 light in reach. Side rails up X2. Adult w/ patient. Client placed on continuous cardiac and pulse oximetry monitoring. NIBP monitoring applied. 09:15 CT Head Brain wo Cont In Process Unspecified. EDMS 09:32 Chest Single View XRAY In Process Unspecified. EDMS 10:[address] In Process Unspecified. EDMS 10:[address] In Process Unspecified. EDMS 11:46 Masoud Man MD is Referral Physician. rn Administered Medications: 09:47 Drug: Ondansetron IVP 4 mg Route: IVP; Site: right antecubital; kr3 12:26 Follow up: Response: No adverse reaction kr3 09:48 Drug: NS 0.9% IV 1000 ml Route: IV; Rate: 1000 ml; Site: right antecubital; kr3 12:26 Follow up: Response: No adverse reaction; IV Status: Completed infusion; IV Intake: kr3 1000ml 10:30 Drug: Meclizine PO 50 mg Route: PO; kr3 12:26 Follow up: Response: No adverse reaction kr3 10:31 Drug: Diazepam PO 2 mg Route: PO; kr3 12:26 Follow up: Response: No adverse reaction kr3 12:26 Not Given (Patient Refused): Promethazine IVP 12.5 mg IVP once kr3 Medication: 09:08 VIS not applicable for this client. vg1 Intake: 12:26 IV: 1000ml; Total: 1000ml. kr3 Outcome: 11:46 Discharge ordered by . rn 12:28 Patient left the ED. kr3 Signatures: Dispatcher [employer] EDMitesh Hill MD MD rn Garcia, Victoria, RN RN 1 Lilli Rodriguez Kelley, RN RN kr3
[2022-11-19 13:14] LABS: Benzodiazepines NEGATIVE (NEGATIVE); Cocaine NEGATIVE (NEGATIVE); METHAMPHETAM NEGATIVE (NEGATIVE); Phencyclidine NEGATIVE (NEGATIVE)
[2022-11-19 13:15] LABS: Barbiturates NEGATIVE (NEGATIVE); Methadone NEGATIVE (NEGATIVE); Opiates NEGATIVE (NEGATIVE); THC Cannibis POSITIVE (NEGATIVE)
[2022-11-19 15:25] VITALS: TEMP 97.7
[2022-11-19 15:36] VITALS: O2SAT 100
[2022-11-19 15:38] VITALS: BP 130/95
--- NOTE | 2022-11-20 17:25 | EKG ---
Test Date: 2022-11-19 Test Time: 10:42:20 Personnel Clerks Supervisor: CHRISTOPHER MEASUREMENT RESULTS: Intervals: Rate: 85 DC: 132 QRSD: 96 QT: 392 QTc: 466 [place]: P: 72 DC: 132 QRS: 81 T: 43 INTERPRETIVE STATEMENTS: Normal sinus rhythm Normal ECG No previous ECG available for comparison Electronically Signed On 11-20-22 17:21:59 CDT by Ernst Rodriguez
== END 2022-11-19 12:28 | disposition home or self-care (01) ==
LOC: ER 08:36
DX: R55 Syncope and collapse (principal); H81.399 Other peripheral vertigo, unspecified ear; F41.9 Anxiety disorder, unspecified
CPT/HCPCS: 85025; 80048; 36415; 83735; 85610; 80076; 85730; 84443; 84484; 84439; 80307; 70450; 70496; 70498; 71045; Q9967; J8597; J2405; J7030; 93005; 96361; 96374; 99284; J2550